=== PATIENT | female | born 1980 | race Caucasian/White ===

== ENCOUNTER 2017-06-20 19:29 | Outpatient (CLI) | END 2017-06-21 02:20 | disposition home or self-care (01) ==

== ENCOUNTER 2017-07-11 01:43 | Inpatient (IN) | END 2017-07-13 11:15 | disposition home or self-care (01) | DRG 775 ==

== ENCOUNTER 2018-04-10 07:05 | Day surgery (SDC) | END 2018-04-10 11:36 | disposition home or self-care (01) ==